=== PATIENT | female | born 1960 | race Caucasian/White ===

== ENCOUNTER 2017-04-20 09:25 | Emergency (ER) | payer OTHER ==
[2017-04-20 13:07] LABS: URINE BLOOD (Dip) POC 1+ (NEGATIVE); URINE GLUCOSE (Dip) POC Negative (NEGATIVE); URINE KETONES (Dip) POC Negative (NEGATIVE); URINE LEUKOCYTE EST (Dip) POC Negative (NEGATIVE); URINE NITRITE (Dip) POC Negative (NEGATIVE); URINE TOTAL PROTEIN POC Negative (NEGATIVE)
[2017-04-20 13:07] LABS: URINE PH (Dip) POC 5.5 (5.0-8.5)
[2017-04-20] MEDS: ACETAMINOPHEN 325 MG TAB PO (13:14)
== END 2017-04-20 14:20 | disposition home or self-care (01) ==
LOC: FTE 09:25
DX: B34.9 Viral infection, unspecified (principal)
CPT/HCPCS: 81003; 99283